=== PATIENT | female | born 1960 | race Caucasian/White ===

== ENCOUNTER 2023-02-06 12:37 | Outpatient (CLI) | payer BC, SELFPAY ==
--- NOTE | 2023-02-06 12:59 | MM_ITS ---
WS: [id number] BILATERAL 3D TOMOSYNTHESIS DIGITAL SCREENING MAMMOGRAPHY WITH CAD CLINICAL INFORMATION: SCREENING HISTORY: Screening mammogram. No current complaints. COMPARISON: 2017 TECHNIQUE: Bilateral CC and MLO views. FINDINGS: Scattered fibroglandular densities bilaterally. A few incidental punctate calcifications. Small ovoid nodule LEFT breast anteriorly measuring 4 mm appears new from previous. Recommend LEFT breast diagno stic mammography and ultrasound. Unremarkable RIGHT breast. MM/[place] [id number] IMPRESSION: BI-RADS: 0-Incomplete: Need additional imaging evaluation FOLLOW UP: Need Additional Imaging Recommend LEFT breast diagnostic mammography with ultrasound.
== END 2023-02-06 12:38 | disposition home or self-care (01) ==
PROVIDERS: PCP Internal Medicine; Visit Provider Internal Medicine
DX: Z12.31 Encounter for screening mammogram for malignant neoplasm of breast (principal)
CPT/HCPCS: 77063; 77067

== ENCOUNTER 2023-03-13 14:47 | Outpatient (CLI) | payer BC, SELFPAY ==
--- NOTE | 2023-03-13 14:53 | MM_ITS ---
WS: [id number] LEFT 3D TOMOSYNTHESIS DIGITAL MAMMOGRAPHY WITH CAD CLINICAL INFORMATION: ABNORMAL MAMMO HISTORY: Additional views COMPARISON: 02/06/2023 TECHNIQUE: 3 views of the left breast were obtained. FINDINGS: Scattered fibroglandular densities of the left breast. Previously described 4 mm nodule anterior left breast is no longer seen today. No other suspicious abnormalities. Recommend return to annual screen ing mammography. IMPRESSION: MM/[place] [id number] BI-RADS: 2-Benign FOLLOW UP: 1 Year Follow-up Recommend return to annual screening mammography.
== END 2023-03-13 14:48 | disposition home or self-care (01) ==
LOC: RAD 14:49
PROVIDERS: PCP Internal Medicine; Visit Provider Internal Medicine
DX: R92.8 Other abnormal and inconclusive findings on diagnostic imaging of breast (principal)
CPT/HCPCS: 77061; G0279

== ENCOUNTER 2024-03-28 09:57 | Outpatient (CLI) | payer BC, SELFPAY ==
--- NOTE | 2024-03-28 10:00 | MM_ITS ---
WS: [id number] SCREENING DIGITAL BREAST TOMOSYNTHESIS MAMMOGRAM WITH CAD HISTORY: SCREENING COMPARISON: 03/13/2023, 02/06/2023, 04/15/2009, 05/16/2017 Bilateral CC and MLO with tomosynthesis and synthetic mammography submitted. Computer aided detection analyzed. Breast composition: There are scattered areas of fibroglandular density. New slightly irregular nodul e posterior LEFT breast near 3:00 measures 6 x 5 mm. This needs to be further evaluated. There are ad ditional stable benign calcifications. MM/[place] [id number] IMPRESSION: BI-RADS: 0-Incomplete: Need additional imaging evaluation FOLLOW UP: Need Additional Imaging LEFT breast: Spot compression views (CC and MLO). True ML. Ultrasound to follow if abnormality persists.
== END 2024-03-28 09:58 | disposition home or self-care (01) ==
LOC: RAD 09:58
PROVIDERS: PCP Internal Medicine; Visit Provider Internal Medicine
DX: Z12.31 Encounter for screening mammogram for malignant neoplasm of breast (principal); R92.323 Mammographic fibroglandular density, bilateral breasts; N63.21 Unspecified lump in the left breast, upper outer quadrant; R92.1 Mammographic calcification found on diagnostic imaging of breast
CPT/HCPCS: 77063; 77067

== ENCOUNTER 2024-04-16 08:17 | Outpatient (CLI) | payer BC, SELFPAY ==
--- NOTE | 2024-04-16 | US_ITS ---
NOTE: Report was unsigned for reason: To attach ultrasound report and order. Original Signature date and time was: 04/16/24 @956 ADDENDUM WS: [id number] REUSLTS CALLED TO BRITTANY AT DR HARTMAN OFFICE 04/16/24 @ 1145 Addendum Dictated By: Jonelle Briseno DO Addendum Signed By: Jonelle Briseno DO Signed Date/Time: 04/16/24 1504 Addendum Cosigned By: WS: [id number] ADDITIONAL VIEWS LEFT MAMMOGRAM with tomosynthesis. LEFT BREAST ULTRASOUND HISTORY: ABNORMAL MAMMOGRAM COMPARISON: 03/28/2024, 03/13/2023, 02/06/2023, 05/16/2017 LEFT MAMMOGRAM: Spot compression views and true ML with tomosynthesis and sympathetic mammography. Breast composition: There are scattered areas of fibroglandular density. New slightly irregular asymmetry persists in the posterior lateral breast near 3:00 measuring 8 x 6 mm. There is an additional slightly lobulated nodule in the anterior LEFT breast just medial to the nipple measuring 5 mm which appears slightly more prominent on the imaging study obtained this year. Ultrasound will also be performed in this region. LEFT BREAST ULTRASOUND 2-D and color Doppler imaging submitted. Hypoechoic mass with shadowing and irregular margins at 3:00, 5 cm from the nipple measures 5 x 5 x 6 mm. This corresponds to the mass in the lateral breast. There is an additional hypoechoic mass measuring 5 x 3 x 4 mm at 9:00, 2 cm from the nipple. This may be a small complex cyst or duct with debris. This is not a simple cyst. MM/MM diag LT tomosynthesis [id number] IMPRESSION: BI-RADS: 4 - Suspicious Finding - Biopsy Should Be Considered. FOLLOW UP: Biopsy Recommended 1. Ultrasound-guided biopsy recommended of the hypoechoic mass at 3:00, 5 cm from the nipple. 2. There is an additional tubular mass at 9:00, 2 cm from the nipple. This may be a benign cyst or dilated duct. As this is not a simple cyst recommend biopsy also. Notified Dank Hartman DO at 04/16/2024 11:42 AM. Dictated By: Jonelle Briseno DO Signed By: Jonelle Briseno DO Signed Date/Time: 04/16/24 1142 DD/ 0935 MTD US/US breast LT limited* [id number] BI-RADS: 4 - Suspicious Finding - Biopsy Should Be Considered. FOLLOW UP: Biopsy Recommended 1. Ultrasound-guided biopsy recommended of the hypoechoic mass at 3:00, 5 cm f rom the nipple. 2. There is an additional tubular mass at 9:00, 2 cm from the nipple. This may be a benign cyst or dilated duct. As this is not a simple cyst recommend biops y also. Notified Dank Hartman DO at 04/16/2024 11:42 AM.
--- NOTE | 2024-04-16 08:21 | US_ITS ---
WS: [id number] ANNY CALLED TO BRITTANY AT DR HARTMAN OFFICE 04/16/24 @ 3085
--- NOTE | 2024-04-16 08:21 | MM_ITS ---
WS: [id number] ADDITIONAL VIEWS LEFT MAMMOGRAM with tomosynthesis. LEFT BREAST ULTRASOUND HISTORY: ABNORMAL MAMMOGRAM COMPARISON: 03/28/2024, 03/13/2023, 02/06/2023, 05/16/2017 LEFT MAMMOGRAM: Spot compression views and true ML with tomosynthesis and sympathetic mammography. Breast composition: There are scattered areas of fibroglandular density. New slightly irregular asymmetry persists in the posterior lateral breast near 3:00 measuring 8 x 6 m m. There is an additional slightly lobulated nodule in the anterior LEFT breast just medial to the ni pple measuring 5 mm which appears slightly more prominent on the imaging study obtained this year. Ul trasound will also be performed in this region. LEFT BREAST ULTRASOUND 2-D and color Doppler imaging submitted. Hypoechoic mass with shadowing and irregular margins at 3:00, 5 cm from the nipple measures 5 x 5 x 6 mm. This corresponds to the mass in the lateral breast. There is an additional hypoechoic mass measu ring 5 x 3 x 4 mm at 9:00, 2 cm from the nipple. This may be a small complex cyst or duct with debris . This is not a simple cyst. MM/MM diag LT tomosynthesis [id number] IMPRESSION: BI-RADS: 4 - Suspicious Finding - Biopsy Should Be Considered. FOLLOW UP: Biopsy Recommended 1. Ultrasound-guided biopsy recommended of the hypoechoic mass at 3:00, 5 cm f rom the nipple. 2. There is an additional tubular mass at 9:00, 2 cm from the nipple. This may be a benign cyst or dilated duct. As this is not a simple cyst recommend biops y also. Notified Dank Ambriz DO at 04/16/2024 11:42 AM.
== END 2024-04-16 08:18 | disposition home or self-care (01) ==
LOC: RAD 08:18
PROVIDERS: PCP Internal Medicine; Visit Provider Internal Medicine
DX: R92.2 Inconclusive mammogram (principal); N63.23 Unspecified lump in the left breast, lower outer quadrant; N63.24 Unspecified lump in the left breast, lower inner quadrant; R92.323 Mammographic fibroglandular density, bilateral breasts
CPT/HCPCS: 76642; 77061; G0279